=== PATIENT | male | born 1990 | race Caucasian/White ===

== ENCOUNTER 2024-06-15 21:18 | Emergency (ER) | payer OTHER ==
[2024-06-15 21:28] VITALS: BP 133/75; PULSE 71; RESP 19; TEMP 99.5; BMI 27.9
[2024-06-15] MEDS ORDERED: IBUPROFEN 600 MG TABLET (FP) PO ONE (22:20)
[2024-06-15] MEDS: IBUPROFEN 600 MG TABLET (FP) PO ONE (22:22)
== END 2024-06-15 22:28 | disposition home or self-care (01) ==
LOC: JER 21:18 → JERFT 21:18
DX: H60.502 Unspecified acute noninfective otitis externa, left ear (principal); H92.02 Otalgia, left ear
CPT/HCPCS: 99283-25

== ENCOUNTER 2024-07-05 19:32 | Emergency (ER) | payer OTHER ==
[2024-07-05 19:51] VITALS: BP 107/63; PULSE 64; RESP 18; TEMP 98.7; BMI 27.9
[2024-07-05] MEDS ORDERED: IBUPROFEN 600 MG TABLET (FP) PO ONE (20:33)
[2024-07-05] MEDS: IBUPROFEN 600 MG TABLET (FP) PO ONE (20:34)
== END 2024-07-05 21:23 | disposition home or self-care (01) ==
LOC: JERFT 19:32
DX: S60.012A Contusion of left thumb without damage to nail, initial encounter (principal); W18.2XXA Fall in (into) shower or empty bathtub, initial encounter
CPT/HCPCS: 73130-TC-LT-FY; 99283-25